=== PATIENT | male | born 1975 | race African-American/Black ===

== ENCOUNTER 2017-05-27 18:46 | Emergency (ER) | payer OTHER ==
[~2017-05-27] VITALS: Ht 188 cm; Wt 90.7 kg
[2017-05-27 19:40] VITALS: BP 118/71
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
--- NOTE | 2017-05-27 20:00 | NUR ---
DR. WELLER AT BEDSIDE FOR EVAL.
--- NOTE | 2017-05-27 20:13 | NUR ---
Patient discharged to home in stable condition. Written and verbal after care instructions given. Patient verbalizes understanding of instruction. ambulatory with a steady gait
== END 2017-05-27 20:14 | disposition home or self-care (01) ==
LOC: ER 18:48
DX: M62.838 Other muscle spasm (principal)
CPT/HCPCS: A4606; Z7610